=== PATIENT | female | born 2000 | race Caucasian/White ===

== ENCOUNTER 2023-10-27 11:21 | Inpatient (IN) | payer BC ==
[2023-10-30] MEDS ORDERED: LIDOCAINE 0.5% (PF) 5 MG/ML (50 ML SDV) SQ PRN (06:16)
[2023-10-30] MEDS ORDERED: miSOPROStoL 200 MCG TAB PO PRN (06:16)
[2023-10-30] MEDS ORDERED: OXYTOCIN 10 UNIT/ML 1 ML VIAL IM PRN (06:16)
[2023-10-30] MEDS ORDERED: TRANEXAMIC 1,000 MG/100ML-NACL 1,000 MG in EMPTY BAG 1 BAG IV PRN (06:16)
[2023-10-30] MEDS ORDERED: CARBOPROST TROMETHAMINE 250 MCG/ML 1 ML AMP IM PRN (06:16)
[2023-10-30] MEDS ORDERED: miSOPROStoL 200 MCG TAB RECTAL PRN (06:16)
[2023-10-30] MEDS ORDERED: TERBUTALINE 1 MG/ML VIAL SQ PRN (06:16)
[2023-10-30 06:32] LABS: Basophils % (A) 0 %; Eosinophils # (A) 0.1 k/uL (0-0.7); Eosinophils % (A) 1 %; HCT 38.5 % (34.0-46.0); HGB 13.3 gm/dL (11.4-16.0); Lymphocytes # (A) 1.8 k/uL (1.0-4.8); Lymphocytes % (A) 19 %; MCH 30.2 pg (25.0-35.0); MCHC 34.6 g/dL (31.0-37.0); MCV 87.3 fL (80.0-100.0); Mean Platelet Volume 9.6; Monocytes # (A) 0.4 k/uL (0-1.0); Monocytes % (A) 4 %; Neutrophils # (A) 7.3 k/uL (1.3-7.7); Neutrophils % (A) 75 %; Platelet Count 173 k/uL (150-450); RBC 4.41 m/uL (3.80-5.40); RDW 13.5 % (11.5-15.5); WBC 9.7 k/uL (3.8-10.6)
[2023-10-30] MEDS: OXYTOCIN 30 UNITS/500 ML NS 30 UNIT in SALINE 1 500ML.BAG IV SCH ×2 (06:37→19:06)
[2023-10-30] MEDS: LACTATED RINGERS 1,000 ML IV SCH (06:37)
[2023-10-30] MEDS: NALBUPHINE 10 MG/ML (10 ML MDV) IV PRN (13:22)
[2023-10-30] MEDS ORDERED: fentaNYL (PF) 50 MCG/ML 5 ML AMP ONE (15:25)
[2023-10-30] MEDS ORDERED: ROPIVACAINE 5 MG/ML 30 ML VIAL ONE (15:25)
[2023-10-30] MEDS ORDERED: SODIUM CHLORIDE 0.9% 250 ML BAG ONE (15:25)
[2023-10-30] MEDS: METHYLERGONOVINE 0.2 MG/ML 1 ML AMP IM PRN (18:45)
[2023-10-30] MEDS ORDERED: diphenhydrAMINE 25 MG CAP PO PRN (18:46)
[2023-10-30] MEDS ORDERED: ZOLPIDEM 5 MG TAB PO PRN (18:46)
[2023-10-30] MEDS ORDERED: diphenhydrAMINE 50 MG CAP PO PRN (18:46)
[2023-10-30] MEDS ORDERED: BENZOCAINE/MENTHOL SPRAY 1 GM/SPRAY AEROSOL TOPICAL PRN (18:46)
[2023-10-30] MEDS ORDERED: HYDROCORTISONE 2.5% RECTAL CREAM 30 GM TUBE RECTAL PRN (18:46)
[2023-10-30] MEDS ORDERED: diphenhydrAMINE 50 MG/ML 1 ML VIAL IVP PRN ×2 (18:46)
[2023-10-30] MEDS ORDERED: LANOLIN CREAM 1 GM TUBE TOPICAL PRN (18:46)
[2023-10-30] MEDS ORDERED: SIMETHICONE 80 MG CHEWABLE PO PRN (18:46)
--- NOTE | 2023-10-30 18:49 | P.PROBDLV ---
Vaginal Delivery Note - . Vaginal Delivery Note: Findings viable female at 1826, weight of 9 pounds 0.1 ounces, Apgars of 9 and 9 at 1 and 5 minutes respectively. 23-year-old 1 para 0 at 40-3/7 weeks presented this morning for induction of labor secondary to postdates. Patient was admitted and Pitocin induction of labor was began per hospital protocol. Patient underwent amniotomy and clear fluid was obtained. Patient progressed through labor getting Nubain x 1 for discomfort. Patient made good cervical change to 3 cm and requested epidural. Epidural was placed without difficulty by the anesthesia department. Patient made good progress toward complete dilation. Once completely dilated patient began pushing. With excellent maternal effort patient had a normal spontaneous vaginal delivery of a viable female infant at 1826, weight of 9 pounds 0.1 ounces, Apgars of 9 and 9 at 1 and 5 minutes respectively. After 2- minute delay the umbilical head was doubly clamped and cut. Spontaneous cry was noted at . The send was delivered spontaneously intact with a three-vessel cord being noted. On inspection of the patient's vaginal vault she had a secondary midline laceration along with a left labial/sulcus tear. These were repaired in the usual fashion with 3-0 Rapide. Hemostasis was noted after closure. Bladder was drained for approximately 300 cc of clear yellow urine. Uterus was noted to be boggy with occasional gushing of lochia, Methergine was given and the uterus firmed. All counts were noted be correct x 2 at the end of the delivery. Patient and infant tolerated delivery well and are resting comfortably.
--- NOTE | 2023-10-30 18:50 | P.HPOB ---
History of Present Illness H&P Date: 10/30/23 Chief Complaint: IUP at 43/sevenths weeks This is a 23-year-old 1 para 0 at 40-3/7 weeks presents to labor and delivery for induction of labor secondary to postdates. Patient has been receiving routine care with myself which has been essentially uncomplicated. Patient denies concerns this morning. Patient does note good movement denies vaginal bleeding or loss of fluid. On blood work this patient has a blood type of B+, rubella status immune, hepatitis B surface ab negative, HIV negative, RPR is nonreactive, group B strep culture is negative. Review of Systems Constitutional: Denies chills, Denies fatigue, Denies fever Ears, nose, mouth and throat: Denies headache Cardiovascular: Denies leg edema Respiratory: Denies dyspnea Gastrointestinal: Denies constipation, Denies diarrhea, Denies nausea, Denies vomiting Genitourinary: Reports Past Medical History Additional Past Medical History / Comment(s): Previous shoulder dislocation History of Any Multi-Drug Resistant Organisms: None Reported Past Surgical History: Orthopedic Surgery Additional Past Surgical History / Comment(s): 2016 R shoulder surgery Past Anesthesia/Blood Transfusion Reactions: No Reported Reaction Past Psychological History: No Psychological Hx Reported Smoking Status: Never smoker Past Alcohol Use History: None Reported Past Drug Use History: None Reported - Past Family History father History Unknown: Yes Family Medical History: Diabetes Mellitus Medications and Allergies Home Medications Medication Instructions Recorded Confirmed Type Aspirin 1 tab PO DAILY 10/30/23 10/30/23 History Vit No.179/Iron/Folic 1 tab PO DAILY 10/30/23 10/30/23 History [ Tablet] Allergies Allergy/AdvReac Type Severity Reaction Status Date / Time shellfish derived [Shellfish] Allergy Swelling Verified 10/30/23 06:02 Exam Osteopathic Statement: *. No significant issues noted on an osteopathic structural exam other than those noted in the History and Physical/Consult. Vital Signs Temp Pulse Resp BP 10/30/23 06:01 96.1 F L 90 16 139/87 Intake and Output 10/29/23 10/30/23 10/30/23 22:59 06:59 14:59 Other: Weight 92.533 kg Targeted physical exam is performed this date General Is a well-nourished well- developed female in no acute distress, breathing is nonlabored, abdomen is noted to be gravid, on cervical exam she is 1-2/70/-2 station amniotomy is performed and clear fluid was obtained. heart tones were noted to be category 1 and she is greta every 2 to 3 minutes. Results Result Diagrams: 10/30/23 06:05 Assessment and Plan (1) Post-dates Current Visit: Yes Status: Acute Code(s): O48.0 - POST-TERM SNOMED Code(s): 69652518 Plan: 23-year-old 1 para 0 at 40-3/7 weeks that presents to labor and delivery for induction of labor secondary to postdates. Patient is admitted and Pitocin induction of labor has begun per hospital protocol. Options for analgesia discussed including Nubain, nitrous, epidural. Patient will consider.
[2023-10-30] MEDS: IBUPROFEN 600 MG TAB PO SCH (20:28)
[2023-10-30] MEDS: SENNOSIDES-DOCUSATE SODIUM 1 EACH TAB PO SCH (20:29)
[2023-10-30 21:24] VITALS: RESP 16
[2023-10-31 07:41] LABS: Basophils % (A) 0 %; Eosinophils % (A) 0 %; HCT 28.9 % (34.0-46.0); Lymphocytes # (A) 1.6 k/uL (1.0-4.8); Lymphocytes % (A) 12 %; MCH 31.3 pg (25.0-35.0); MCHC 35.2 g/dL (31.0-37.0); MCV 88.9 fL (80.0-100.0); Mean Platelet Volume 9.6; Monocytes # (A) 0.5 k/uL (0-1.0); Monocytes % (A) 4 %; Neutrophils # (A) 10.6 k/uL (1.3-7.7); Neutrophils % (A) 83 %; Platelet Count 157 k/uL (150-450); RBC 3.25 m/uL (3.80-5.40); WBC 12.7 k/uL (3.8-10.6)
[2023-10-31 07:43] LABS: HGB 10.2 gm/dL (11.4-16.0)
[2023-10-31] MEDS: ACETAMINOPHEN TAB 325 MG TAB PO PRN (07:51)
--- NOTE | 2023-10-31 13:11 | P.DS ---
Providers Date of admission: 10/30/23 05:50 Expected date of discharge: 10/31/23 Attending physician: Brenda Holder Primary care physician: Stated None - Discharge Diagnosis(es) (1) Post-dates Current Visit: Yes Status: Acute (2) Status post vaginal delivery Current Visit: Yes Status: Acute (3) Obstetrical laceration, second degree Current Visit: Yes Status: Acute Hospital Course: 23-year-old 1 para 0 that presented to labor and delivery on 10/29 for induction of labor secondary to postdates. Patient was noted to be 40-3/7 weeks, estimate due to of 10/26. For full details in this patient please see the dictated history and physical. Patient was admitted and Pitocin induction of labor was begun. Patient underwent amniotomy and clear fluid was obtained. Patient progressed to complete began pushing a normal spontaneous vaginal delivery of a viable female infant at 1826, weight of 8 pounds 15 ounces. Patient did sustain a second-degree vaginal laceration along with a lateral sulcus tear. These were repaired in usual fashion with 3-0 Rapide. Patient has done well . On this day #1 she is ambulating and voiding without difficulty. She is tolerating a regular diet without nausea or vomiting. States her pain is well-controlled. She would like discharge home in 24 hours of possible. Patient Condition at Discharge: Good Plan - Discharge Summary New Discharge Prescriptions: No Action Vit No.179/Iron/Folic [ Tablet] 1 tab PO DAILY Aspirin 1 tab PO DAILY Discharge Medication List Aspirin 1 tab PO DAILY 10/30/23 [History] Vit No.179/Iron/Folic [ Tablet] 1 tab PO DAILY 10/30/23 [History] Follow up Appointment(s)/Referral(s): Brenda Holder DO [Doctor of Osteopathic Medicine] - 6 Weeks Patient Instructions/Handouts: Vaginal Delivery (DC), Vaginal Delivery (GEN) Activity/Diet/Wound Care/Special Instructions: No tophus or intercourse until 6 weeks . [id number]-hfx-xcyivqe ibuprofen 600 mg or 3 tablets every 6 hours as needed for pain. Discharge Disposition: HOME SELF-CARE
[2023-10-31 17:58] VITALS: BP 121/83; PULSE 84; TEMP 97.6
== END 2023-10-31 19:32 | disposition home or self-care (01) | DRG 807 ==
LOC: MERGE 11:21 → 4FBP 10-30 05:50
PROVIDERS: ADMIT Obstetrics & Gynecology Obstetrics; ATTEND Obstetrics & Gynecology Obstetrics
PROC: 3E033VJ Introduction of Other Hormone into Peripheral Vein, Percutaneous Approach (ICD-10-PCS; principal; 2023-10-30)
PROC: 10907ZC Drainage of Amniotic Fluid, Therapeutic from Products of Conception, Via Natural or Artificial Opening (ICD-10-PCS; principal; 2023-10-30)
PROC: 0KQM0ZZ Repair Perineum Muscle, Open Approach (ICD-10-PCS; principal; 2023-10-30)
PROC: 10E0XZZ Delivery of Products of Conception, External Approach (ICD-10-PCS; principal; 2023-10-30)
DX: O48.0 Post-term pregnancy (principal); Z37.0 Single live birth; O70.1 Second degree perineal laceration during delivery; Z3A.40 40 weeks gestation of pregnancy; Z79.82 Long term (current) use of aspirin; Z91.013 Allergy to seafood

== ENCOUNTER 2023-10-28 13:10 | Outpatient (CLI) | payer BC | END 2023-10-28 14:00 | LOC: FBPOP 13:10 | PROVIDERS: ATTEND Obstetrics & Gynecology | CPT/HCPCS: 59025; 84112; 99213 ==